=== PATIENT | male | born 1935 | race Caucasian/White ===

== ENCOUNTER → 2019-04-22 | Outpatient (CLI) | payer MEDICARE, OTHER ==
[~2019-04-22] MED LIST: ASP81TEC PO; FENO145T2 PO; HCT25T PO; LATA2.5D5 OP; LEVO125T6 PO; METO50TA7 PO; OMEG-12 PO; SMV20T PO; [UNRECOGNIZED DRUG - CODE] OD
== END ==
LOC: CARD 13:50
PROVIDERS: ATTEND Physician Assistant
DX: E11.9 Type 2 diabetes mellitus without complications (principal); I65.29 Occlusion and stenosis of unspecified carotid artery; I10 Essential (primary) hypertension; I50.30 Unspecified diastolic (congestive) heart failure; E78.5 Hyperlipidemia, unspecified; I49.1 Atrial premature depolarization; I08.3 Combined rheumatic disorders of mitral, aortic and tricuspid valves
CPT/HCPCS: 93306

== ENCOUNTER → 2020-07-06 | Outpatient (CLI) | payer MEDICARE, OTHER ==
[~2020-07-06] MED LIST changes: +APIX5TAB PO; +FINA5TAB6 PO; +LEVO112C4 PO; +LISI20TA26 PO
== END ==
LOC: LABNPT 08:39
PROVIDERS: ATTEND Internal Medicine Cardiovascular Disease
DX: Z20.822 Contact with and (suspected) exposure to COVID-19 (principal)
CPT/HCPCS: 87635

== ENCOUNTER 2020-07-09 11:30 | Day surgery (SDC) | payer MEDICARE, OTHER ==
[2020-07-09] VITALS (8 sets, daily range): BP systolic 108–137; BP diastolic 72–113
[~2020-07-09] VITALS: Ht 180 cm; Wt 73.0 kg
[2020-07-09 10:19] LABS: HEMOGLOBIN 12.1 g/dL (13.3-17.7); MEAN PLATELET VOLUME 9.8 fL (9.0-12.2)
[2020-07-09 10:37] LABS: INR 1.1 (0.8-1.4); PROTHROMBIN TIME PATIENT 14.2 SEC (12.2-14.7)
[2020-07-09 10:45] LABS: BILIRUBIN,TOTAL 0.5 MG/DL (0.1-1.0); CALCIUM 9.2 MG/DL (8.5-10.1); CREATININE SERUM 2.81 MG/DL (0.60-1.30); POTASSIUM 4.7 MMOL/L (3.6-5.0); TOTAL PROTEIN 7.3 GM/DL (6.4-8.2)
--- NOTE | 2020-07-09 10:57 | Diagnostic Imaging Report ---
INDICATION: Atrial fibrillation, hypertension. FINDINGS: The heart size is upper limits. No vascular congestion. No edema, pneumonia, effusion, or pneumothorax. There is some benign calcified granulomatous disease present. No noncalcified or suspect nodule. IMPRESSION: No acute appearing abnormality. Dictated by: Dictated on workstation # [id number]
[~2020-07-09 11:30] MED LIST changes: -APIX5TAB PO; +LIDOCAINE 2% VISCOUS 15 ML UDC ONE; +LIDOCAINE 2% VISCOUS 15 ML UDC PO ONE; +MIDAZOLAM 2 MG/2 ML (VERSED) VIAL ONE; +MIDAZOLAM 5 MG/5 ML (VERSED) VIAL IV ONE; +MIDAZOLAM 5 MG/5 ML (VERSED) VIAL ONE; +NS IV 1000 ML 1,000 ML IV ONE; +NS IV 1000 ML 1,000 ML ONE; +proPOfol 200 MG/20 ML (DIPRIVAN) VIAL IV ONE
[2020-07-09] MEDS ORDERED: ENOXAPARIN 100 MG/1 ML (LOVENOX) SYR ONE (11:53)
--- NOTE | 2020-07-09 11:55 | Cardiac Procedure Note-CS/ASA ---
Pre-Procedure Note Pre-Op Procedure Note H&P Reviewed The H&P was reviewed, patient examined and no changes noted. Date H&P Reviewed: Jul 09, 2020 Time H&P Reviewed: 11:55 Conscious Sedation Pre-Proced Time 11:55 ASA Score 3 For ASA 3 and 4: Consider anesthesia and medical clearance. Also, for patients with a history of failed moderate sedation consider anesthesia. Airway Lungs Heart ASA score ASA 1: a normal healthy patient ASA 2: a patient with a mild systemic disease (mid diabetes, controlled hypertension, obesity x ASA 3: a patient with a severe systemic disease that limits activity (angina, COPD, prior Myocardial infarction) ASA 4: a patient with an incapacitating disease that is a constant threat to life (CHF, renal failure) ASA 5: a moribund patient not expected to survive 24 hrs. (ruptured aneurysm) ASA 6: a declared brain- patient whose organs are being harvested. For emergent operations, add the letter E after the classification Mallampati Classification Grade 3 Sedation Plan Analgesia, Amnesia, Plan communicated to team members, Discussed options with patient/fam, Discussed risks with patient/fam The patient is an appropriate candidate to undergo the planned procedure, sedation, and anesthesia. The patient immediately re-assessed prior to indication. SHERICE HUBBARD MD Jul 09, 2020 11:55
--- NOTE | 2020-07-09 11:56 | Anesthesia-General Post-Op ---
MAC Patient Condition Mental Status/LOC: Same as Preop Cardiovascular: Satisfactory Nausea/Vomiting: Absent Respiratory: Satisfactory Pain: Controlled Complications: Absent Post Op Complications Complications None Follow Up Care/Instructions Patient Instructions None needed. Anesthesiology Discharge Order Discharge Order Patient is doing well, no complaints, stable vital signs, no apparent adverse anesthesia problems. No complications reported per nursing. STEFANIA LUDWIG CRNA Jul 09, 2020 11:56
--- NOTE | 2020-07-09 11:59 | Cardioversion ---
Cardioversion PROCEDURE PHYSICIAN: Sherice Baltazar DATE OF PROCEDURE: 07/09/20 DIRECT EXTERNAL ELECTRICAL CARDIOVERSION: Indications: Atrial Fibrillation with rapid ventricular rate Preoperative diagnoses: Atrial Fibrillation with rapid ventricular rate Postoperative diagnosis: Sinus rhythm, Successful Electrical Cardioversion Anesthesia: By Anesthesia services Complications: None Specimen: None Contrast: 0 Flouroscopy: none Procedure Details: The patient was brought the molder labels after informed consent was taken, all the risks and complications were explained including the risk of stroke. Electrical cardioversion was carried out with anesthesia support with propofol. 200 joules of synchronized shock was delivered through external patches which promptly restored sinus rhythm. The patient tolerated the procedure well. Conclusions: Successful electrical cardioversion with no complication Final Diagnosis: Paroxysmal atrial fibrillation Hypertension Hyperlipidemia SHERICE BALTAZAR MD Jul 09, 2020 11:59
[2020-07-09] MEDS ORDERED: APIXABAN 5 MG (ELIQUIS) TABLET PO SCH (12:00)
[2020-07-09] MEDS ORDERED: ENOXAPARIN 80 MG/0.8 ML (LOVENOX) SYR SC ONE (12:30)
[2020-07-09] MEDS ORDERED: APIX5TAB PO (12:38)
--- NOTE | 2020-07-09 12:38 | Discharge Inst-Post CATH ---
Discharge Inst-CATH/EP Problems Reviewed?: Yes Post Cardiac Cath/EP D/C Inst Follow Up/Plan Appointment with Dr. Baltazar's office in 1 to 2 weeks <b>CARDIAC CATH/EP PROCEDURE DISCHARGE INSTRUCTIONS</b> ACTIVITY * Go Home directly and rest. * Limit activity of the leg (or wrist if it was used) for 7 days including aer obics, swimming, jogging, bicycling, etc. * Restrict stair-climbing for 7 days if possible, if not, climb up with your non-cath leg, then bring together on the same step. * Avoid lifting, pushing, pulling or excessive movement of the affected extremi ty for 7 days. * Customary sexual activity may be resumed after 2 days-use caution not to use a position that strains or causes pain to the affected extremity. * No driving for 24 hours. * NO SMOKING. * Avoid straining for bowel movements for 7 days. * Gentle walking on level ground is allowed. * Returning to work will depend on the type of procedure and the results. Your doctor will discuss this with you. CALL YOUR DOCTOR FOR ANY OF THE FOLLOWING: *If bleeding from the puncture site occurs- Apply gentle pressure to site with clean cloth and call your doctor or EMS. * If a knot or lump forms under the skin, increases in size, or causes pain. * If bruising appears to be worsening or moving further down your leg instead of disappearing. * Temperature above 101 F. CARE OF YOUR GROIN INCISION; * Bruising or purple discoloration of the skin near the puncture site is common. * You may shower only, no bathtub bathing for 5 days. Be careful to avoid slipping as your leg may feel stiff. * If a closure device was used on your femoral artery, please see the attached guide regarding care of the device and your leg. * Leave dressing on FOR 24 hours. CARE OF YOUR WRIST INCISION; * Bruising or purple discoloration of the skin near the puncture site is common. * You may shower. * DO NOT submerge wrist. * Leave dressing on FOR 24 hours. SHERICE BALTAZAR MD Jul 09, 2020 12:38
[2020-07-10] MEDS ORDERED: FINASTERIDE (PROSCAR) 5 MG TAB PO SCH (09:00)
[2020-07-10] MEDS ORDERED: NON-FORMULARY MEDICATION 1 EA EA (Levothyroxine Sodium (Levothyroxine) 112 MCG) PO SCH (09:00)
[2020-07-10] MEDS ORDERED: meTOproloL SUCCINATE 50 MG (TOPROL XL) TAB PO SCH (09:00)
[2020-07-10] MEDS ORDERED: lisINopril 20 MG (PRINIVIL) TABLET PO SCH (09:00)
== END 2020-07-09 13:15 | disposition home or self-care (01) ==
LOC: CATH 13:15
PROVIDERS: ATTEND Internal Medicine Cardiovascular Disease
DX: I48.0 Paroxysmal atrial fibrillation (principal); I10 Essential (primary) hypertension; E78.5 Hyperlipidemia, unspecified; E78.2 Mixed hyperlipidemia; E11.9 Type 2 diabetes mellitus without complications; I11.0 Hypertensive heart disease with heart failure; I50.9 Heart failure, unspecified; M19.90 Unspecified osteoarthritis, unspecified site; I65.29 Occlusion and stenosis of unspecified carotid artery; Z79.899 Other long term (current) drug therapy; Z86.73 Personal history of transient ischemic attack (TIA), and cerebral infarction without residual deficits
CPT/HCPCS: 36415; 71045; 80053; 80061; 85027; 85610; 85730; 87081; 92960; 93005; 93320; 93325

== ENCOUNTER 2021-12-06 10:45 | Outpatient (RCR) | payer MEDICARE, OTHER ==
[~2021-12-06 10:45] MED LIST changes: +ACHD5005 PO; +ALB0.5V INH; +APIX2.5T PO; +APIX5TAB PO; +ASPI-999 PO; +CEPH500T PO; +DIPH1TAB PO; +DOCU100C37 PO; +DRON400T6 PO; +ERGO1250 PO; +FAMO20TA3 PO; +LACT1CAP28 PO; +LATA2.5D19 OU; +LEVO200T6 PO; -LIDOCAINE 2% VISCOUS 15 ML UDC ONE; -LIDOCAINE 2% VISCOUS 15 ML UDC PO ONE; +LOPE-175 PO; +MAGN240P PO; +MAGN400O7 PO; +MENT71OI TP; -MIDAZOLAM 2 MG/2 ML (VERSED) VIAL ONE; -MIDAZOLAM 5 MG/5 ML (VERSED) VIAL IV ONE; -MIDAZOLAM 5 MG/5 ML (VERSED) VIAL ONE; +NF-SODBICA PO; -NS IV 1000 ML 1,000 ML IV ONE; -NS IV 1000 ML 1,000 ML ONE; +SODI44SP2 NSEACH; +TMSL.4C PO; -proPOfol 200 MG/20 ML (DIPRIVAN) VIAL IV ONE
[2021-12-06 12:20] VITALS: BP 121/72
[2021-12-06] MEDS ORDERED: DARBEPOETIN 40 MCG/ML (ARANESP) HOSPITAL SC ONE (12:45)
== END 2022-01-03 | disposition home or self-care (01) ==
LOC: SDC 10:45
PROVIDERS: ATTEND Internal Medicine Nephrology
DX: D50.8 Other iron deficiency anemias (principal); N18.5 Chronic kidney disease, stage 5
CPT/HCPCS: 96372

== ENCOUNTER → 2022-01-03 | Outpatient (RCR) | payer MEDICARE, OTHER ==
[~2022-01-03] VITALS: Ht 177.8 cm; Wt 77.3 kg
[~2022-01-03] MED LIST changes: +ACETAMINOPHEN 500 MG TAB (TYLENOL) PO PRN; +FERRIC CARBOXYMALTOSE INJ 750 MG in NS (IVPB) 250 ML IV SCH; +diphenhydrAMINE 50 MG/ML INJ (BENADRYL) IVP PRN
[2022-01-03 13:40] VITALS: BP 119/86
== END ==
LOC: SDC 13:45
PROVIDERS: ATTEND Internal Medicine Nephrology
DX: D50.9 Iron deficiency anemia, unspecified (principal); N18.9 Chronic kidney disease, unspecified; D63.1 Anemia in chronic kidney disease
CPT/HCPCS: 96365

== ENCOUNTER 2022-01-10 10:33 | Outpatient (RCR) | payer MEDICARE, OTHER ==
[~2022-01-10] VITALS: Wt 77.3 kg
[~2022-01-10 10:33] MED LIST changes: -ACETAMINOPHEN 500 MG TAB (TYLENOL) PO PRN; -FERRIC CARBOXYMALTOSE INJ 750 MG in NS (IVPB) 250 ML IV SCH; -diphenhydrAMINE 50 MG/ML INJ (BENADRYL) IVP PRN
[2022-01-10] MEDS ORDERED: ACETAMINOPHEN 500 MG TAB (TYLENOL) PO PRN (10:51)
[2022-01-10] MEDS ORDERED: FERRIC CARBOXYMALTOSE INJ 750 MG in NS (IVPB) 250 ML IV SCH (10:51)
[2022-01-10] MEDS ORDERED: diphenhydrAMINE 50 MG/ML INJ (BENADRYL) IVP PRN (10:51)
[2022-01-10 11:20] VITALS: BP 128/97
== END 2022-02-03 | disposition home or self-care (01) ==
LOC: SDC 10:33
PROVIDERS: ATTEND Internal Medicine Nephrology
DX: D50.8 Other iron deficiency anemias (principal); N18.5 Chronic kidney disease, stage 5; D63.1 Anemia in chronic kidney disease